=== PATIENT | male | born 1965 | race Caucasian/White ===

== ENCOUNTER → 2021-08-01 | Day surgery (SDC) | payer BC ==
[~2021-08-01] VITALS: Ht 180.3 cm; Wt 111.4 kg
[~2021-08-01] MED LIST: AMLO-186 PO; AMLO-187 PO; ECON15CR3 TP; IV RINGERS,LACTATED 1000ML 1,000 ML IV SCH; LIDOCAINE 2% PF 5 ML VIAL. ONE; LOSA1TAB12 PO; METO25TA2 PO; OMEP20CA16 PO; PROPOFOL 10 MG/ML (20ML) VIAL. IV ONE; SPIR50TA4 PO; TERB250T72 PO
[2021-08-01 07:18] VITALS: BP 127/77
--- NOTE | 2021-08-01 08:31 | CONS ---
DATE OF CONSULTATION: 08/01/2021 UPDATED HISTORY AND PHYSICAL PRIMARY CARE PHYSICIAN: Dr. Palacios. REASON: Colorectal screening. HISTORY OF PRESENT ILLNESS: A 56-year-old male whose past medical history is significant for hypertension as well as gastroesophageal reflux disease, status post cholecystectomy and back surgery as well as tonsillectomy, is seen for screening colon exam. Bowel habits are regular without diarrhea or constipation. There has been no melena and/or hematochezia. Weight and appetite are stable. He is otherwise without additional complaints. PAST MEDICAL HISTORY: Hypertension, status post back surgery, cholecystectomy, tonsillectomy. ALLERGIES: None. MEDICATIONS: Include amlodipine, losartan, metoprolol, omeprazole, spironolactone. FAMILY HISTORY: Significant for hypertension with his mother. REVIEW OF SYSTEMS: As per records. PHYSICAL EXAMINATION: GENERAL: Reveals a well-nourished, well-developed male. VITAL SIGNS: Temp is 97.2, pulse 65, respiratory rate is 20. LUNGS: Clear. CARDIOVASCULAR: Reveals an S1, S2, without S3, S4 or appreciable murmur. ABDOMEN: Soft abdomen, normal bowel sounds, without appreciable hepatosplenomegaly. EXTREMITIES: Reveals no cyanosis, clubbing or edema. IMPRESSION: Colorectal screening is warranted at this time. Risks and benefits of procedure including risk of hemorrhage and perforation with operation have been discussed with the patient and he is willing to proceed. I would like to thank Dr. Palacios for allowing us to consult and participate in this patient's care. DEEPALI DR: Jocelin TID: [id number] CC: HALLE PALACIOS MD
[2021-08-01 09:01] VITALS: BP 120/75
--- NOTE | 2021-08-04 18:06 | PATHOLOGY ---
[facility] Accession Number: [id number] . 01 Material submitted: . PART A: rectum - RECTAL POLYP PART B: sigmoid colon - SIGMOID COLON POLYP . 01 Clinical history: . CRC COLON . 02 Diagnosis: A. Colorectal biopsies, rectal polyps: - Pedunculated tubular adenoma. - Hyperplastic polyp. . B. Colon biopsies, sigmoid colon polyps: - Tubular adenomas. ([facility]; 08/04/2021) [facility] 08/04/2021 1344 Local . 02 Comment: There is no high-grade dysplasia or evidence of malignancy. ([facility]; 08/04/2021) . 02 Electronically signed: . Jose Francisco Mackey MD, Pathologist NPI- [id number] . 01 Gross description: . A. Received in formalin labeled "Óscar More, rectal polyp" are multiple aguilera-brown soft tissue fragments measuring in aggregate 1.9 x 1.2 x 0.4 cm. The largest polyp surgical resection margin is inked black and bisected. The specimen is submitted entirely in A1. . B. Received in formalin labeled "Óscar More sigmoid colon polyp" are multiple aguilera-brown soft tissue fragments measuring in aggregate 1.2 x 0.5 x 0.3 cm. The specimen is submitted entirely in B1. ([facility]; 08/02/2021) [facility] 08/02/2021 1715 Local . 02 Pathologist provided ICD-10: D12.8, D12.5 . 02 CPT . 873522, 006188 Specimen Comment: A courtesy copy of this report has been sent to [phone] Specimen Comment: Report sent to / DR PALACIOS Specimen Comment: A duplicate report has been generated due to demographic updates. Performed at: 01 [facility] [address] [facility] [address], [place] [id number] MD Baltazar Hayes MD Phone: [phone] Performed at: 02 [facility] [address], [place] [id number] MD Jose Francisco Mackey MD Phone: [phone]
== END | disposition home or self-care (01) ==
LOC: SURG 06:59
PROVIDERS: ATTEND Internal Medicine Gastroenterology
DX: Z12.11 Encounter for screening for malignant neoplasm of colon (principal); D12.8 Benign neoplasm of rectum; D12.5 Benign neoplasm of sigmoid colon; K64.0 First degree hemorrhoids; K63.89 Other specified diseases of intestine; I10 Essential (primary) hypertension; K21.9 Gastro-esophageal reflux disease without esophagitis; E66.9 Obesity, unspecified; M19.90 Unspecified osteoarthritis, unspecified site; Z85.828 Personal history of other malignant neoplasm of skin; Z87.891 Personal history of nicotine dependence; Z79.899 Other long term (current) drug therapy; Z90.49 Acquired absence of other specified parts of digestive tract; Z98.890 Other specified postprocedural states; Z82.49 Family history of ischemic heart disease and other diseases of the circulatory system
CPT/HCPCS: 45380; 45385; 88305; J2704